=== PATIENT | male | born 1950 | race Two or more races ===

== ENCOUNTER 2019-12-16 16:55 | Emergency (ER) | payer MEDICARE ==
[~2019-12-16] VITALS: Ht 172.7 cm; Wt 86.2 kg
[2019-12-16] MEDS ORDERED: Omnipaque-300 100ml vial INJ PRN (17:00)
[2019-12-16] MEDS: Ketorolac 30mg Inj IV ONE ×2 (17:00→17:33)
[2019-12-16 17:20] VITALS: BP 122/70
--- NOTE | 2019-12-16 17:20 | NUR ---
ED Nurse Note: Pt walked into ED for pain from hitting back accidentally with car door today. Pt has skin tear on back, no discharge. Pt pain on back is 3/10. Pt has multiplpe small skin tears on L leg with no discharge. Pt is alert and orientedx4, ambulatory.
--- NOTE | 2019-12-16 17:41 | NUR ---
ED Nurse Note: MANI Ramirez informed patient refusing Toradol and IV NS.
--- NOTE | 2019-12-16 17:46 | NUR ---
ED Nurse Note: MANI Lang notified that pt unable to urinate sofar. MANI states ok to wait.
[2019-12-16 17:55] LABS: BASOPHILS % (AUTO) 1.6 % (0.0-2.0); HEMATOCRIT 44.7 % (42.0-52.0); HEMOGLOBIN 14.5 G/DL (14.2-18.0); LYMPHOCYTES % (AUTO) 24.6 % (20.0-45.0); MEAN CORPUSCULAR VOLUME 98 FL (80-99); MONOCYTES % (AUTO) 11.2 % (1.0-10.0); NEUTROPHILS % (AUTO) 59.6 % (45.0-75.0); PLATELET COUNT 150 K/UL (150-450); RED BLOOD COUNT 4.58 M/UL (4.70-6.10); WHITE BLOOD COUNT 5.1 K/UL (4.8-10.8)
[2019-12-16 18:10] LABS: ANION GAP 15 mmol/L (5-15); BLOOD UREA NITROGEN 19 mg/dL (7-18); CALCIUM 9.2 MG/DL (8.5-10.1); CARBON DIOXIDE 23 MMOL/L (21-32); CHLORIDE 105 MMOL/L (98-107); CREATININE 1.1 MG/DL (0.55-1.30); SODIUM 143 MMOL/L (136-145)
[2019-12-16 18:14] LABS: ALANINE AMINOTRANSFERASE 35 U/L (12-78); ALBUMIN 3.6 G/DL (3.4-5.0); ALBUMIN/GLOBULIN RATIO 1.1 (1.0-2.7); ALKALINE PHOSPHATASE 76 U/L (46-116); ASPARTATE AMINO TRANSFERASE 21 U/L (15-37); BILIRUBIN,TOTAL 0.3 MG/DL (0.2-1.0)
--- NOTE | 2019-12-16 18:42 | Diagnostic Imaging Report ---
Indications: Pain after hitting back with a car door , Skin laceration Technique: Spiral acquisitions obtained through the lumbar spine. Multiplanar reconstructions were generated. Patient was given IV contrast. Total dose length product 579 mGycm. CTDIvol(s) 13 mGy. Dose reduction achieved using automated exposure control Comparison: none Findings: There is a mild compression fracture deformity of the T10 vertebral body, predominantly involving the anterior wall and inferior endplate. There is also very slight focal irregularity of the posterior wall. The remaining vertebral body heights are preserved. No other evidence of acute fracture. Bony alignment is normal. No dislocations. No definite significant posterior soft tissue abnormality demonstrated. There is a slight degree of dependent edema of the lumbar subcutaneous fat. At T11-12, there is mild neural foraminal stenosis on the right. No significant disc bulge or protrusion. At L2-3, there is mild circumferential annular bulge. This results in borderline narrowing of the spinal canal. No significant neural foraminal narrowing. There is bilateral facet arthrosis at this level. There is minimal degenerative disc narrowing. At L3-4, there is circumferential annular bulge. This, in combination with short pedicles and ligamentum flavum hypertrophy results in moderate narrowing of the spinal canal. The neural foramina are preserved. There is bilateral facet arthrosis. At L4-5, circumferential annular bulge, short pedicles, and facet hypertrophy result in mild to moderate narrowing of the spinal canal. The neural foramina are preserved. At L5-S1, there is circumferential annular bulge. This may slightly compromise the bilateral neural foramina. No definite central canal stenosis. Impression: T10 vertebral body compression fracture deformity, acuity indeterminate although suspect not acute. Correlate with findings, consider MRI for better characterization if there is high clinical suspicion for acute fracture. This finding was not reported by [facility] teleradiology service, was discussed by phone with Dr. Witt at the time of interpretation No evidence of acute lumbar bony trauma Multilevel degenerative changes, as detailed above The remainder of the findings agree with the [facility] preliminary report The CT scanner at [facility] is accredited by the [employer] and the scans are performed using protocols designed to limit radiation exposure to as low as reasonably achievable to attain images of sufficient resolution adequate for diagnostic evaluation.
--- NOTE | 2019-12-16 18:57 | Emergency Room Report ---
History of Present Illness General Chief Complaint: Laceration Source: Patient Present Illness HPI 69-year-old male with no known significant past medical history other than hypertension currently controlled here with the paramedics complaining low back pain after accidentally hitting his back to the garage door. Ecchymosis noted and minor abrasion. Patient complains of burning sensation in the area. Rates the pain 10 out of 10 without radiation. Denies any pain radiation, urinary or bowel incontinence. Denies tingling and numbness. Also minor abrasions noted in the left knee as patient landed on the knee after he was shocked of the impact gate at his back. Patient reports that he is using a fungal cream and takes blood pressure medication and otherwise healthy. Denies any chest pain, headache, head injury, loss of consciousness. Has not taken medication for symptom relief. Appears to be anxious. Allergies: Coded Allergies: No Known Allergies (Unverified , 12/16/19) Patient History Past Medical History: see triage record Past Surgical History: none Pertinent Family History: none Immunizations: UTD Reviewed Nursing Documentation: PMH: Agreed; PSxH: Agreed Nursing Documentation-PMH Past Medical History: No Stated History Review of Systems All Other Systems: negative except mentioned in HPI Physical Exam Vital Signs Date Time Temp Pulse Resp B/P (MAP) Pulse Ox O2 Delivery O2 Flow Rate FiO2 12/16/19 16:51 97.9 76 19 126/71 (89) 98 Room Air Sp02 EP Interpretation: reviewed, normal General Appearance: no apparent distress, alert, GCS 15, non-toxic Head: normocephalic, atraumatic Eyes: bilateral eye normal inspection, bilateral eye PERRL ENT: hearing grossly normal, normal pharynx, no angioedema, normal voice Neck: full range of motion, supple, thyroid normal, no meningismus, no bony tend, supple/symm/no masses Respiratory: chest non-tender, lungs clear, normal breath sounds, no rhonchi, no respiratory distress, no retraction, no wheezing, speaking full sentences Cardiovascular #1: regular rate, rhythm, no edema, no murmur, normal capillary refill Cardiovascular #2: 2+ dorsalis pedis (R), 2+ dorsalis pedis (L) Gastrointestinal: normal bowel sounds, non tender, soft, non-distended, no guarding, no rebound Genitourinary: no CVA tenderness Musculoskeletal: normal range of motion, digits/nails normal, no calf tenderness, pelvis stable, gait/station normal, non-tender, other - Ecchymosis noted in lumbar region, abrasions noted lumbar region and left knee Neurologic: alert, motor strength/tone normal, oriented x3, sensory intact, responsive, speech normal Psychiatric: judgement/insight normal, memory normal, mood/affect normal, no suicidal/homicidal ideation Skin: no rash, abrasion - Left knee and lower back Lymphatic: no adenopathy Medical Decision Making PA Attestation All my diagnosis and treatment plans were reviewed ad discussed with my supervising physician Dr. Alex Diagnostic Impression: Primary Impression: Lumbar contusion Additional Impression: Abrasion ER Course 69-year-old male with no known significant past medical history other than hypertension currently controlled here with the paramedics complaining low back pain after accidentally hitting his back to the garage door. Ecchymosis noted and minor abrasion. Patient complains of burning sensation in the area. Rates the pain 10 out of 10 without radiation. Denies any pain radiation, urinary or bowel incontinence. Denies tingling and numbness. Also minor abrasions noted in the left knee as patient landed on the knee after he was shocked of the impact gate at his back. Patient reports that he is using a fungal cream and takes blood pressure medication and otherwise healthy. Denies any chest pain, headache, head injury, loss of consciousness. Has not taken medication for symptom relief. Appears to be anxious. Ddx considered but are not limited to: Lumbar spine sprain, strain, fracture, contusion, neuropathy Vital signs: are WNL, pt. is afebrile H&PE are most consistent with: Lumbar contusion, abrasion ORDERS: Lumbar spine CT scan, CBC, CMP, Motrin, Voltaren gel ER intervention: Wound clean, due to burning sensation I applied silver Silvadene patient refused Toradol and IV fluids DISCHARGE: At this time pt. is stable for d/c to home. Will provide printed patient care instructions, and any necessary prescriptions. Care plan and follow up instructions have been discussed with the patient prior to discharge. Patient to follow-up primary care provider, take medication as directed, if worsening symptoms return to the emergency room. Patient was very anxious throughout the course of treatment, question every treatments, did not want any antibiotic ointment as was under the impression that all antibiotics cause more fungal infection as he is currently being treated for fungal infection secondary to overuse of antibiotics. Patient also reports that he wants to jonah his primary care provider for over a prescription of antibiotics. I clarified the patient Voltaren gel should be applied to knee and ecchymosis in the back and avoid the abrasions. No open wound was noted. Дмитрий, ER fuel storage technician witnessed my conversation with the patient. Patient agreed with the above treatment and understood the application of Voltaren gel. CT/MRI/US Diagnostic Results CT/MRI/US Diagnostic Results : Imaging Test Ordered: CT L-spine with contrast Impression No fracture noted, no disc dislocation noted, no signs of trauma Last Vital Signs Date Time Temp Pulse Resp B/P (MAP) Pulse Ox O2 Delivery O2 Flow Rate FiO2 12/16/19 17:20 97.9 78 19 122/70 95 Room Air Status: improved Disposition: HOME, SELF-CARE Condition: Stable Scripts Diclofenac Sodium (VOLTAREN) 100 Gm Gel..gram. 2 GM TP TID, #100 GM Prov: Rickey Danielle 12/16/19 Ibuprofen* (MOTRIN*) 600 Mg Tablet 600 MG ORAL Q8H PRN for For Pain, #30 TAB 0 Refills Prov: Rickey Danielle 12/16/19 Referrals: NON PHYSICIAN (PCP) Patient Instructions: Abrasion, [id number], Contusion, [id number] Additional Instructions: Take medication as directed, follow-up with your primary care provider, if worsening symptoms return to the emergency room Rickey Danielle Dec 16, 2019 18:57
[2019-12-16] MEDS ORDERED: IBUPROFEN600 MG ORAL (18:58)
[2019-12-16] MEDS ORDERED: VOLTAREN100 G1 TP (18:58)
--- NOTE | 2019-12-16 19:05 | NUR ---
ED Nurse Note: Received report from SHAHRIAR Fox. received discharge paperwork.
[2019-12-16 19:15] VITALS: BP 125/70
--- NOTE | 2019-12-16 19:15 | NUR ---
ER DISCHARGE NOTE: Patient is cleared to be discharged per ERMD, pt is aox4, on room air, with stable vital signs. pt was given dc and prescription instructions, pt was able to verbalize understanding, pt id band and iv site removed without complications. pt is able to ambulate with steady gait. pt took all belongings.
--- NOTE | 2019-12-17 17:54 | Emergency Room Report ---
Physical Exam Vital Signs Date Time Temp Pulse Resp B/P (MAP) Pulse Ox O2 Delivery O2 Flow Rate FiO2 12/16/19 16:51 97.9 76 19 126/71 (89) 98 Room Air Medical Decision Making Diagnostic Impression: Primary Impression: Lumbar contusion Additional Impression: Abrasion ER Course Called patient at 5:53 PM left a voicemail to call the ER back patient has not answered. Patient with an incidental finding of a compression fracture on CT CT/MRI/US Diagnostic Results CT/MRI/US Diagnostic Results : Impression Procedure: CT L Spine w Contrast Indications: Pain after hitting back with a car door , Skin laceration Technique: Spiral acquisitions obtained through the lumbar spine. Multiplanar reconstructions were generated. Patient was given IV contrast. Total dose length product 579 mGycm. CTDIvol(s) 13 mGy. Dose reduction achieved using automated exposure control Comparison: none Findings: There is a mild compression fracture deformity of the T10 vertebral body, predominantly involving the anterior wall and inferior endplate. There is also very slight focal irregularity of the posterior wall. The remaining vertebral body heights are preserved. No other evidence of acute fracture. Bony alignment is normal. No dislocations. No definite significant posterior soft tissue abnormality demonstrated. There is a slight degree of dependent edema of the lumbar subcutaneous fat. At T11-12, there is mild neural foraminal stenosis on the right. No significant disc bulge or protrusion. At L2-3, there is mild circumferential annular bulge. This results in borderline narrowing of the spinal canal. No significant neural foraminal narrowing. There is bilateral facet arthrosis at this level. There is minimal degenerative disc narrowing. At L3-4, there is circumferential annular bulge. This, in combination with short pedicles and ligamentum flavum hypertrophy results in moderate narrowing of the spinal canal. The neural foramina are preserved. There is bilateral facet arthrosis. At L4-5, circumferential annular bulge, short pedicles, and facet hypertrophy result in mild to moderate narrowing of the spinal canal. The neural foramina are preserved. At L5-S1, there is circumferential annular bulge. This may slightly compromise the bilateral neural foramina. No definite central canal stenosis. Impression: T10 vertebral body compression fracture deformity, acuity indeterminate although suspect not acute. Correlate with findings, consider MRI for better characterization if there is high clinical suspicion for acute fracture. This finding was not reported by [facility] teleradiology service, was discussed by phone with Dr. Witt at the time of interpretation No evidence of acute lumbar bony trauma Multilevel degenerative changes, as detailed above The remainder of the findings agree with the [facility] preliminary report The CT scanner at [facility] is accredited by the [employer] and the scans are performed using protocols designed to limit radiation exposure to as low as reasonably achievable to attain images of sufficient resolution adequate for diagnostic evaluation. Dictated By: Pj Harman MD Electronically Signed By: Pj Harman MD Signed Date/Time 12/17/19 2070 CC: Rickey Danielle Last Vital Signs Date Time Temp Pulse Resp B/P (MAP) Pulse Ox O2 Delivery O2 Flow Rate FiO2 12/16/19 19:15 97.9 76 19 125/70 95 Room Air Disposition: HOME, SELF-CARE Condition: Stable Scripts Diclofenac Sodium (VOLTAREN) 100 Gm Gel..gram. 2 GM TP TID, #100 GM Prov: Rickey Danielle 12/16/19 Ibuprofen* (MOTRIN*) 600 Mg Tablet 600 MG ORAL Q8H PRN for For Pain, #30 TAB 0 Refills Prov: Rickey Danielle 12/16/19 Referrals: NON PHYSICIAN (PCP) [facility] Open 24 hour /7 days a week by Appointment Only [address] [facility] [id number] Patient Instructions: Contusion, [id number], Abrasion, [id number] Additional Instructions: Take medication as directed, follow-up with your primary care provider, if worsening symptoms return to the emergency room Rasta Witt MD Dec 17, 2019 17:54
--- NOTE | 2019-12-18 21:58 | Emergency Room Report ---
Physical Exam Vital Signs Date Time Temp Pulse Resp B/P (MAP) Pulse Ox O2 Delivery O2 Flow Rate FiO2 12/16/19 16:51 97.9 76 19 126/71 (89) 98 Room Air Medical Decision Making Diagnostic Impression: Primary Impression: Lumbar contusion Additional Impression: Abrasion ER Course Called patient to explain to him that he has a compression fracture which is an incidental finding and not related to his recent injury also explained to him how to apply Voltaren gel however patient family member mixing picker tender the phone and reported that patient has been sleeping due to having sleeping pills and pain medication and will call back however family member hung up the phone before confirming that he has our phone number. Also family member insisted on me disclosing information to him even though the patient himself was not awake. Will try to call later. Last Vital Signs Date Time Temp Pulse Resp B/P (MAP) Pulse Ox O2 Delivery O2 Flow Rate FiO2 12/16/19 19:15 97.9 76 19 125/70 95 Room Air Disposition: HOME, SELF-CARE Condition: Stable Scripts Diclofenac Sodium (VOLTAREN) 100 Gm Gel..gram. 2 GM TP TID, #100 GM Prov: Rickey Danielle 12/16/19 Ibuprofen* (MOTRIN*) 600 Mg Tablet 600 MG ORAL Q8H PRN for For Pain, #30 TAB 0 Refills Prov: Rickey Danielle 12/16/19 Referrals: NON PHYSICIAN (PCP) [facility] Open 24 hour /7 days a week by Appointment Only [address] [facility] [address] [facility] [address] Patient Instructions: Contusion, [id number], Abrasion, [id number] Additional Instructions: Take medication as directed, follow-up with your primary care provider, if worsening symptoms return to the emergency room Rickey Danielle Dec 18, 2019 21:58
== END 2019-12-16 19:15 | disposition home or self-care (01) ==
LOC: EDBD 16:55 → EMR 18:20
DX: S30.0XXA Contusion of lower back and pelvis, initial encounter (principal); S80.212A Abrasion, left knee, initial encounter; I10 Essential (primary) hypertension; W22.8XXA Striking against or struck by other objects, initial encounter; Y93.9 Activity, unspecified; Y92.015 Private garage of single-family (private) house as the place of occurrence of the external cause
CPT/HCPCS: 36415; 72132; 80053; 85025; 99284; G0480; Q9967